=== PATIENT | female | born 1970 | race Caucasian/White ===

== ENCOUNTER → 2018-06-22 | Outpatient (CLI) | payer OTHER ==
--- NOTE | 2018-06-22 17:06 | Diagnostic Imaging Report ---
EXAMINATION: Abdominal ultrasound. CLINICAL INDICATION: Abdominal pain COMPARISON: None DISCUSSION: Transverse and longitudinal images of the upper abdomen were obtained. The liver is normal in size measuring 17.9 centimeters in length in the right midclavicular line and shows normal echogenicity. No focal masses are seen in the liver. There is no intrahepatic biliary dilatation. The common bile duct measures 0.3 cm.. Cholecystectomy. The visualized portions of the pancreatic body are unremarkable. The spleen is normal in echogenicity and size measuring 11.6 centimeters in length. Focal 0.5 cm echogenic area/calcification. The right kidney measures 10 centimeters in length and the left kidney measures 9.8 centimeters. There is normal renal cortical echogenicity and no hydronephrosis, solid mass or shadowing calculi. The visualized portions of the great vessels are normal. No free fluid is seen. IMPRESSION: Cholecystectomy. Hepatomegaly. Signed by: Dr. Michele Carty M.D. on 06/22/2018 5:03 PM
--- NOTE | 2018-06-23 09:17 | Diagnostic Imaging Report ---
EXAMINATION: Transvaginal ultrasound. CLINICAL INDICATION: Pelvic pain COMPARISON: None DISCUSSION: Transverse and sagittal transvaginal images were obtained of the pelvis with supplemental transabdominal images. Transvaginal medically necessary to better evaluate the adnexa. The uterus is anteverted and normal in size measuring 6.1 x 3.6 x 4.1 cm. The endometrial stripe is homogeneous, normal in thickness and measures 0.4 centimeters. Nabothian cysts present. One is mildly complex with echogenic component. The ovaries are normal in size and echogenicity. The right ovary measures 2.7 x 1.7 x 2 centimeters. The left ovary measures 2.4 x 0.9 x 1.8 centimeters. Left ovarian small cyst/dominant follicle 2.6 cm. Right ovarian small cyst/dominant follicle 1.8 cm. Additional smaller follicles. No free fluid or pelvic masses are seen. IMPRESSION: Bilateral ovarian small cysts/dominant follicles. No follow-up needed. Signed by: Dr. Michele Carty M.D. on 06/23/2018 9:14 AM
== END ==
LOC: MAMMO 14:53
PROVIDERS: ATTEND Specialist
DX: R10.11 Right upper quadrant pain (principal); R10.2 Pelvic and perineal pain
CPT/HCPCS: 76700; 76830